=== PATIENT | female | born 1945 | race Asian ===

== ENCOUNTER 2021-09-30 22:25 | Emergency (ER) | payer OTHER, MEDICAID ==
[~2021-09-30] VITALS: Ht 157.5 cm; Wt 59.0 kg
[2021-10-01] MEDS ORDERED: KETAMINE 50mg/ML 10ml Vial (500mg/10ml) IV ONE (01:15)
[2021-10-01] MEDS ORDERED: SODIUM CHLORIDE 0.9% 1,000 ML IV ONE (01:45)
[2021-10-01 04:23] VITALS: BP 167/99
== END 2021-10-01 04:49 | disposition home or self-care (01) ==
LOC: EDBD 22:25 → ER 22:25 → EDUNIT# 22:25 → ER 10-01 04:49
DX: S53.105A Unspecified dislocation of left ulnohumeral joint, initial encounter (principal); I10 Essential (primary) hypertension; E11.9 Type 2 diabetes mellitus without complications; E78.5 Hyperlipidemia, unspecified; W01.0XXA Fall on same level from slipping, tripping and stumbling without subsequent striking against object, initial encounter; Y93.89 Activity, other specified; Y92.89 Other specified places as the place of occurrence of the external cause; Y99.8 Other external cause status
CPT/HCPCS: 24600; 73080; 93005